=== PATIENT | female | born 1955 | race Caucasian/White ===

== ENCOUNTER 2020-09-09 08:35 | Inpatient (IN) | payer MEDICARE ==
[~2020-09-09] VITALS: Ht 167.6 cm; Wt 106.1 kg
[~2020-09-09 08:35] MED LIST: AMLODIPINE BESYL5 MG PO; DEX4 GLUCOSE4 GM PO; HUMALOG 10100 UNITS/ SC; HYDROCHLOROTH12.5 M1 PO; LATANOPROST2.5 ML OS; LISINOPRIL10 MG PO; LISINOPRIL20 MG PO; LOPRESSOR 50 MG50 MG PO; NORVASC 5 MG TAB5 MG PO; OMNICEF 300 MG300 MG PO; TIMOPTIC 0.5% OP5 ML OS
[2020-09-09 10:04] LABS: RED BLOOD COUNT 3.54 M/UL (4.00-5.10); WHITE BLOOD COUNT 11.1 K/UL (4.5-11.0)
[2020-09-09 10:36] LABS: BUN/CREATININE RATIO 18 (0-10)
[2020-09-09] MEDS ORDERED: LISINOPRIL20 MG PO (17:51)
[2020-09-09] MEDS ORDERED: HYDROCHLOROTH12.5 M1 PO (17:54)
[2020-09-10 06:41] LABS: HEMOGLOBIN 9.8 gm/dl (12.3-15.3); RED BLOOD COUNT 3.28 M/UL (4.00-5.10); WHITE BLOOD COUNT 10.6 K/UL (4.5-11.0)
[2020-09-12 06:24] LABS: HEMOGLOBIN 10.3 gm/dl (12.3-15.3); RED BLOOD COUNT 3.33 M/UL (4.00-5.10)
[2020-09-12 06:28] LABS: WHITE BLOOD COUNT 13.5 K/UL (4.5-11.0)
[2020-09-13 04:23] LABS: HEMOGLOBIN 9.5 gm/dl (12.3-15.3); RED BLOOD COUNT 3.06 M/UL (4.00-5.10); WHITE BLOOD COUNT 16.3 K/UL (4.5-11.0)
[2020-09-14 03:33] LABS: HEMOGLOBIN 10.4 gm/dl (12.3-15.3); RED BLOOD COUNT 3.36 M/UL (4.00-5.10); WHITE BLOOD COUNT 12.7 K/UL (4.5-11.0)
[2020-09-15 02:14] LABS: HEMOGLOBIN 10.7 gm/dl (12.3-15.3); RED BLOOD COUNT 3.46 M/UL (4.00-5.10)
[2020-09-16 06:37] LABS: RED BLOOD COUNT 3.35 M/UL (4.00-5.10); WHITE BLOOD COUNT 11.3 K/UL (4.5-11.0)
[2020-09-17 03:33] LABS: HEMOGLOBIN 10.6 gm/dl (12.3-15.3); RED BLOOD COUNT 3.45 M/UL (4.00-5.10); WHITE BLOOD COUNT 12.5 K/UL (4.5-11.0)
[2020-09-18 02:34] LABS: HEMOGLOBIN 10.6 gm/dl (12.3-15.3); RED BLOOD COUNT 3.42 M/UL (4.00-5.10); WHITE BLOOD COUNT 11.6 K/UL (4.5-11.0)
--- NOTE | 2020-09-18 17:06 | NUR ---
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 ABEBE VERBALIZED UNDERSTANDING OF DISCUSSION; HOWEVER PATIENT STATES THAT SHE WILL NOT ALLOW ANYONE TO TURN OR REPOSITION HER BECAUSE SHE DOES NOT FEEL LIKE BEING MOVED.
[2020-09-19 09:28] LABS: HEMOGLOBIN 10.5 gm/dl (12.3-15.3); RED BLOOD COUNT 3.39 M/UL (4.00-5.10); WHITE BLOOD COUNT 11.4 K/UL (4.5-11.0)
[2020-09-20 06:25] LABS: HEMOGLOBIN 10.1 gm/dl (12.3-15.3); RED BLOOD COUNT 3.24 M/UL (4.00-5.10); WHITE BLOOD COUNT 12.3 K/UL (4.5-11.0)
[2020-09-23 03:23] LABS: HEMOGLOBIN 9.8 gm/dl (12.3-15.3); RED BLOOD COUNT 3.16 M/UL (4.00-5.10); WHITE BLOOD COUNT 11.8 K/UL (4.5-11.0)
[2020-09-23] MEDS ORDERED: BUMETANIDE1 MG PO (12:33)
[2020-09-23] MEDS ORDERED: LOPRESSOR 25 MG25 MG PO (12:33)
[2020-09-23] MEDS ORDERED: ELIQUIS2.5 MG PO (12:42)
== END 2020-09-23 15:23 | disposition home or self-care (01) | DRG 186 ==
LOC: ER1 08:35 → MED SURG 4 11:51 → ZEROF 11:51 → M/S 11:51 → CCU 09-12 17:37 → PROG CARE 09-13 17:12 → MED SURG 4 09-14 10:45
PROVIDERS: Emergency Medicine; Internal Medicine; Internal Medicine Nephrology; Physician Assistant; ADMIT Internal Medicine
PROC: B24BZZZ Ultrasonography of Heart with Aorta (ICD-10-PCS; principal; 2020-09-10)
PROC: 0TB13ZX Excision of Left Kidney, Percutaneous Approach, Diagnostic (ICD-10-PCS; 2020-09-19)
DX: J90 Pleural effusion, not elsewhere classified (principal); N17.0 Acute kidney failure with tubular necrosis; E11.10 Type 2 diabetes mellitus with ketoacidosis without coma; J18.9 Pneumonia, unspecified organism; I16.9 Hypertensive crisis, unspecified; E87.2 Acidosis; I12.9 Hypertensive chronic kidney disease with stage 1 through stage 4 chronic kidney disease, or unspecified chronic kidney disease; Z20.828 Contact with and (suspected) exposure to other viral communicable diseases; E11.22 Type 2 diabetes mellitus with diabetic chronic kidney disease; N18.30 Chronic kidney disease, stage 3 unspecified; D72.829 Elevated white blood cell count, unspecified; D63.1 Anemia in chronic kidney disease; R60.1 Generalized edema; F17.210 Nicotine dependence, cigarettes, uncomplicated; E87.6 Hypokalemia; R80.9 Proteinuria, unspecified; E11.21 Type 2 diabetes mellitus with diabetic nephropathy; I48.0 Paroxysmal atrial fibrillation; I27.20 Pulmonary hypertension, unspecified; H40.9 Unspecified glaucoma; Z90.49 Acquired absence of other specified parts of digestive tract; Z79.899 Other long term (current) drug therapy; Z80.1 Family history of malignant neoplasm of trachea, bronchus and lung; Z79.4 Long term (current) use of insulin
CPT/HCPCS: ECHO; 36415; 36600; 51702; 71045; 71046; 77012; 80048; 80053; 80069; 81001; 82009; 82550; 82553; 82570; 82803; 82962; 83036; 83605; 83735; 83874; 83880; 84100; 84132; 84156; 84484; 85007; 85025; 85027; 85610; 85730; 87086; 88305; 88313; 88346; 88348; 93005; 93306; 94640; 94664; 94760; 96374; 96375; 97110-GP-CQ; 97162; 97166; 97530-GP-CQ; 99285; J0360; J0696; J1205; J1335; J1644; J1650; J1940; J7070; P9047; U0002

== ENCOUNTER 2020-12-05 08:07 | Inpatient (IN) | payer MEDICARE ==
[~2020-12-05] VITALS: Ht 167.6 cm; Wt 81.6 kg
[~2020-12-05 08:07] MED LIST changes: +BUMETANIDE1 MG PO; +ELIQUIS2.5 MG PO; +LOPRESSOR 25 MG25 MG PO
[2020-12-05 09:22] LABS: HEMOGLOBIN 7.6 gm/dl (12.3-15.3); RED BLOOD COUNT 2.43 M/UL (4.00-5.10)
[2020-12-05 09:33] LABS: WHITE BLOOD COUNT 30.7 K/UL (4.5-11.0)
[2020-12-05] MEDS ORDERED: GABAPENTIN100 MG PO (11:35)
[2020-12-05] MEDS ORDERED: NOVOLIN N100 UNIT/1 SQ ×2 (13:56→17:47)
[2020-12-05] MEDS ORDERED: HUMULIN R100 UNIT/1 INJ (17:50)
[2020-12-06 03:18] LABS: HEMOGLOBIN 7.7 gm/dl (12.3-15.3); RED BLOOD COUNT 2.5 M/UL (4.00-5.10); WHITE BLOOD COUNT 26.9 K/UL (4.5-11.0)
--- NOTE | 2020-12-06 13:59 | NUR ---
RECEIVED CARE OF PT BY CHLOE OATES AT 1134. PT WAS RESTING IN BED ON ASSESSMENT. PT IS SHIVERING AND PALE. BANDAGES ON THE BILATERAL FEET. ASSESSMENT OF THE PT WITH UNCHANGED CONDITIONS. WILL CONTINUE TO MONITOR.
--- NOTE | 2020-12-06 14:04 | NUR ---
AT 1348, PT SHIVERING, PALE AND DIAPHORETIC. CHECKED PT'S BLOOD GLUCOSE WHICH WAS 207 AND TEMPERATURE WHICH WAS 99.4F ORALLY. CALLED AND GAVE REPORT FOR PT TRANSFER TO 2116. WILL CONTINUE TO MONITOR UNTIL TRANSFER.
[2020-12-06 15:16] LABS: HEMOGLOBIN 7.2 gm/dl (12.3-15.3); RED BLOOD COUNT 2.35 M/UL (4.00-5.10)
[2020-12-06 15:18] LABS: WHITE BLOOD COUNT 31.8 K/UL (4.5-11.0)
[2020-12-07 05:23] LABS: HEMOGLOBIN 7.3 gm/dl (12.3-15.3); RED BLOOD COUNT 2.39 M/UL (4.00-5.10)
[2020-12-08 03:48] LABS: WHITE BLOOD COUNT 23.6 K/UL (4.5-11.0)
[2020-12-08 03:49] LABS: RED BLOOD COUNT 2.03 M/UL (4.00-5.10)
[2020-12-08 03:52] LABS: HEMOGLOBIN 6.4 gm/dl (12.3-15.3)
[2020-12-08 18:30] LABS: HEMOGLOBIN 9.5 gm/dl (12.3-15.3)
[2020-12-09 05:06] LABS: HEMOGLOBIN 9.3 gm/dl (12.3-15.3); RED BLOOD COUNT 2.96 M/UL (4.00-5.10); WHITE BLOOD COUNT 21.9 K/UL (4.5-11.0)
[2020-12-10 04:56] LABS: HEMOGLOBIN 8.9 gm/dl (12.3-15.3); RED BLOOD COUNT 2.85 M/UL (4.00-5.10); WHITE BLOOD COUNT 23.5 K/UL (4.5-11.0)
[2020-12-10 14:54] LABS: HEMOGLOBIN 9.3 gm/dl (12.3-15.3); RED BLOOD COUNT 3.08 M/UL (4.00-5.10); WHITE BLOOD COUNT 22.9 K/UL (4.5-11.0)
[2020-12-11 06:25] LABS: HEMOGLOBIN 7.3 gm/dl (12.3-15.3); RED BLOOD COUNT 2.4 M/UL (4.00-5.10)
[2020-12-11 06:26] LABS: WHITE BLOOD COUNT 44.7 K/UL (4.5-11.0)
[2020-12-12 05:20] LABS: HEMOGLOBIN 8.2 gm/dl (12.3-15.3)
[2020-12-12 05:34] LABS: RED BLOOD COUNT 2.77 M/UL (4.00-5.10); WHITE BLOOD COUNT 33.2 K/UL (4.5-11.0)
[2020-12-13 04:42] LABS: HEMOGLOBIN 8.2 gm/dl (12.3-15.3); RED BLOOD COUNT 2.81 M/UL (4.00-5.10); WHITE BLOOD COUNT 25.7 K/UL (4.5-11.0)
[2020-12-14 05:01] LABS: HEMOGLOBIN 8.7 gm/dl (12.3-15.3); RED BLOOD COUNT 2.96 M/UL (4.00-5.10); WHITE BLOOD COUNT 22.5 K/UL (4.5-11.0)
[2020-12-16 04:47] LABS: HEMOGLOBIN 8.1 gm/dl (12.3-15.3); RED BLOOD COUNT 2.76 M/UL (4.00-5.10); WHITE BLOOD COUNT 22.9 K/UL (4.5-11.0)
[2020-12-17 04:19] LABS: RED BLOOD COUNT 2.7 M/UL (4.00-5.10); WHITE BLOOD COUNT 20.9 K/UL (4.5-11.0)
[2020-12-18 05:20] LABS: HEMOGLOBIN 8.3 gm/dl (12.3-15.3); RED BLOOD COUNT 2.83 M/UL (4.00-5.10); WHITE BLOOD COUNT 17.3 K/UL (4.5-11.0)
[2020-12-18 10:51] LABS: URINE CREATININE 59.7 mg/dL
--- NOTE | 2020-12-18 21:06 | NUR ---
DULCOLOX HELD . PATIENT HAVING BM'S THIS DATE
[2020-12-19 04:41] LABS: HEMOGLOBIN 8.2 gm/dl (12.3-15.3); RED BLOOD COUNT 2.79 M/UL (4.00-5.10); WHITE BLOOD COUNT 17.7 K/UL (4.5-11.0)
[2020-12-20 04:37] LABS: HEMOGLOBIN 7.9 gm/dl (12.3-15.3); RED BLOOD COUNT 2.68 M/UL (4.00-5.10); WHITE BLOOD COUNT 15.8 K/UL (4.5-11.0)
[2020-12-21 05:04] LABS: HEMOGLOBIN 7.9 gm/dl (12.3-15.3); RED BLOOD COUNT 2.67 M/UL (4.00-5.10); WHITE BLOOD COUNT 16.4 K/UL (4.5-11.0)
[2020-12-22 03:04] LABS: HEMOGLOBIN 7.6 gm/dl (12.3-15.3); RED BLOOD COUNT 2.59 M/UL (4.00-5.10); WHITE BLOOD COUNT 16.4 K/UL (4.5-11.0)
[2020-12-23 02:52] LABS: HEMOGLOBIN 7.5 gm/dl (12.3-15.3); RED BLOOD COUNT 2.5 M/UL (4.00-5.10); WHITE BLOOD COUNT 16.5 K/UL (4.5-11.0)
[2020-12-25 02:53] LABS: HEMOGLOBIN 7.4 gm/dl (12.3-15.3); RED BLOOD COUNT 2.49 M/UL (4.00-5.10); WHITE BLOOD COUNT 14.5 K/UL (4.5-11.0)
[2020-12-26 02:48] LABS: HEMOGLOBIN 7.1 gm/dl (12.3-15.3); RED BLOOD COUNT 2.39 M/UL (4.00-5.10)
[2020-12-27 03:37] LABS: HEMOGLOBIN 8.7 gm/dl (12.3-15.3); WHITE BLOOD COUNT 13.6 K/UL (4.5-11.0)
[2020-12-27 03:45] LABS: RED BLOOD COUNT 2.92 M/UL (4.00-5.10)
[2020-12-27] MEDS ORDERED: ELIQUIS 5 MG TAB5 MG PO (09:48)
[2020-12-27] MEDS ORDERED: HUMALOG 10100 UNITS/ SC (09:48)
[2020-12-27] MEDS ORDERED: SERTRALINE HCL50 MG PO (09:48)
[2020-12-27] MEDS ORDERED: CHRONULAC20 GM/30 M PO (09:48)
[2020-12-27] MEDS ORDERED: LEVOFLOXACIN750 MG PO (09:48)
[2020-12-27] MEDS ORDERED: LOPRESSOR 25 MG25 MG PO (09:48)
[2020-12-27] MEDS ORDERED: LANTUS INS100 UTS/M1 SQ (09:48)
[2020-12-27] MEDS ORDERED: BUMETANIDE1 MG PO (09:48)
[2020-12-27] MEDS ORDERED: HYDRALAZINE HCL25 MG PO (09:48)
[2020-12-27] MEDS ORDERED: LIPITOR40 MG PO (10:06)
--- NOTE | 2020-12-27 19:19 | NUR ---
REPORT CALLED TO HARDIK AT [facility], [address] [address]. IV LEFT IN PLACE. SAEZ LEFT IN PLACE. INSTRUCT TO CALL WITH ANY QUESTIONS
== END 2020-12-27 21:45 | DRG 853 ==
LOC: ER1 08:07 → PROG CARE 11:01 → CDU 11:01 → CCU 11:01 → CDU 11:53 → M/S 18:42 → CCU 12-06 14:23 → 2 EAST 12-13 17:40 → CCU 12-13 19:44 → PROG CARE 12-21 23:47
PROVIDERS: Internal Medicine; Internal Medicine Nephrology; Internal Medicine Pulmonary Disease; Physician Assistant; Physician Assistant Medical; Surgery; ADMIT Internal Medicine
PROC: 5A09557 Assistance with Respiratory Ventilation, Greater than 96 Consecutive Hours, Continuous Positive Airway Pressure (ICD-10-PCS; 2020-12-06)
PROC: 0Y6H0Z3 Detachment at Right Lower Leg, Low, Open Approach (ICD-10-PCS; 2020-12-10)
PROC: 30233N1 Transfusion of Nonautologous Red Blood Cells into Peripheral Vein, Percutaneous Approach (ICD-10-PCS; 2020-12-10)
PROC: 0DH67UZ Insertion of Feeding Device into Stomach, Via Natural or Artificial Opening (ICD-10-PCS; 2020-12-10)
PROC: 0HRLXK3 Replacement of Left Lower Leg Skin with Nonautologous Tissue Substitute, Full Thickness, External Approach (ICD-10-PCS; 2020-12-10)
PROC: 0HRKXK3 Replacement of Right Lower Leg Skin with Nonautologous Tissue Substitute, Full Thickness, External Approach (ICD-10-PCS; 2020-12-10)
PROC: 0Y6J0Z3 Detachment at Left Lower Leg, Low, Open Approach (ICD-10-PCS; principal; 2020-12-10 07:30)
DX: A41.9 Sepsis, unspecified organism (principal); J96.01 Acute respiratory failure with hypoxia; I50.33 Acute on chronic diastolic (congestive) heart failure; N17.0 Acute kidney failure with tubular necrosis; E43 Unspecified severe protein-calorie malnutrition; J18.9 Pneumonia, unspecified organism; Z51.5 Encounter for palliative care; Z20.822 Contact with and (suspected) exposure to COVID-19; M86.8X7 Other osteomyelitis, ankle and foot; L03.116 Cellulitis of left lower limb; L03.115 Cellulitis of right lower limb; E11.52 Type 2 diabetes mellitus with diabetic peripheral angiopathy with gangrene; E87.2 Acidosis; E87.1 Hypo-osmolality and hyponatremia; D62 Acute posthemorrhagic anemia; N18.4 Chronic kidney disease, stage 4 (severe); E87.0 Hyperosmolality and hypernatremia; I47.1 Supraventricular tachycardia; E11.22 Type 2 diabetes mellitus with diabetic chronic kidney disease; E11.621 Type 2 diabetes mellitus with foot ulcer; E78.5 Hyperlipidemia, unspecified; H40.9 Unspecified glaucoma; E86.0 Dehydration; D63.1 Anemia in chronic kidney disease; I48.0 Paroxysmal atrial fibrillation; R65.20 Severe sepsis without septic shock; L89.310 Pressure ulcer of right buttock, unstageable; I27.20 Pulmonary hypertension, unspecified; I12.9 Hypertensive chronic kidney disease with stage 1 through stage 4 chronic kidney disease, or unspecified chronic kidney disease; I87.8 Other specified disorders of veins; K56.41 Fecal impaction; D50.9 Iron deficiency anemia, unspecified; B96.5 Pseudomonas (aeruginosa) (mallei) (pseudomallei) as the cause of diseases classified elsewhere; E66.3 Overweight; L89.312 Pressure ulcer of right buttock, stage 2; L89.150 Pressure ulcer of sacral region, unstageable; Z79.01 Long term (current) use of anticoagulants; Z99.3 Dependence on wheelchair; Z79.4 Long term (current) use of insulin; Z83.3 Family history of diabetes mellitus; Z82.49 Family history of ischemic heart disease and other diseases of the circulatory system; Z90.49 Acquired absence of other specified parts of digestive tract; Z79.82 Long term (current) use of aspirin; Z68.29 Body mass index [BMI] 29.0-29.9, adult
CPT/HCPCS: 36415; 36430; 36600; 71045; 73620; 73718; 80048; 80053; 80202; 82009; 82272; 82550; 82553; 82570; 82575; 82728; 82800; 82803; 82962; 83036; 83540; 83550; 83605; 83615; 83735; 83880; 84100; 84484; 85007; 85014; 85018; 85025; 85027; 85652; 86140; 86850; 86900; 86901; 86920; 87040; 87070; 87077; 87186; 87205; 92526; 92610; 93005; 93925; 94640; 94660; 94664; 94760; 96365; 96366; 96368; 96372; 96375; 97110; 97110-GP-CQ; 97162; 97164; 97166; 97530; 97530-GP-CQ; 99285; A6212; C9113; J0360; J1205; J1580; J1644; J1940; J1956; J2001; J2185; J2270; J2405; J2543; J2704; J2710; J3010; J3370; J7030; J7040; J7050; J7070; J7120; P9016; P9047; Q4133; U0002